=== PATIENT | female | born 1945 ===

== ENCOUNTER 2018-07-28 12:39 | Inpatient (IN) | payer MEDICARE, OTHER ==
[~2018-07-28] VITALS: Ht 160 cm; Wt 79.4 kg
--- NOTE | 2018-07-28 19:30 | NUR ---
ADMITTED PATIENT IN ACUTE REHAB UNDER THE CARE OF SYDNEE DANIEL DONE, BODY CHECK WAS DONE, NOTED WITH RIGHT AND LEFT UNDERNEAT BREAST RASHES, WITH RIGHT AND LEFT GROIN RASHES, ALSO MULTIPLE BRUISE ON R UPPER ARM AND LOWER ARM, AND BILATERAL HANDS, MULTIPLE BRUISES ON LEFT UPPER AND LOWER ARMS. WITH LEFT ARMS WEAKSNESS AND NUMBNESS NOTED. CONT TO MONITOR.
[2018-07-28] MEDS ORDERED: LOSA50TA3 PO (20:19)
[2018-07-28] MEDS ORDERED: AMLO5TAB7 PO (20:19)
[2018-07-28] MEDS ORDERED: ROSU20TA PO (20:19)
[2018-07-28] MEDS ORDERED: ASPI81TA31 PO (20:19)
[2018-07-28] MEDS ORDERED: Z GUARD REMEDY PASTE 57 GM TUBE TOP PRN (20:30)
[2018-07-28 20:43] VITALS: BP 160/75
[2018-07-28] MEDS ORDERED: ACETAMINOPHEN/DIPHENHYDRAMINE TABLET PO ONE (21:30)
[2018-07-29] MEDS: ACETAMINOPHEN 325 MG TABLET PO PRN ×2 (00:28→20:46)
--- NOTE | 2018-07-29 06:10 | NUR ---
PATIENT SLEPT MOST OF THE NIGHT, NO COMPLAIN OF PAIN AT THIS TIME. KEPT CLEAN AND DRY, TURN AND REPOSITION, NO S/S OF HYPO HYPERGYLCEMIA NOTED. CONT TO MONITOR.
--- NOTE | 2018-07-29 07:30 | NUR ---
AWAKE , ALERT ORIENTED. DENIES DISCOMFORT. MADE COMFORTABLE. DIAPER CHANGED REQUESTED. KEPT CLEAN AND DRY.
[2018-07-29] MEDS: LIDOCAINE 5% PATCH TD SCH (08:27)
[2018-07-29 08:35] VITALS: BP 158/71
--- NOTE | 2018-07-29 09:14 | NUR ---
DONE WITH PT, TOLERATED FAIR. BACK TO ROOM
--- NOTE | 2018-07-29 09:45 | NUR ---
Paged [facility] electrical continuity inspector Dr. Arellano for medication reconciliation. Awaiting for call back
[2018-07-29] MEDS: LOSARTAN POTASSIUM 50 MG TABLET PO SCH ×2 (10:06→20:45)
[2018-07-29] MEDS: ASPIRIN 81 MG TAB.CHEW PO SCH (10:06)
[2018-07-29] MEDS: AMLODIPINE 5 MG TABLET PO SCH (10:09)
--- NOTE | 2018-07-29 11:09 | NUR ---
noted small blood and clot in toilet, no bowel movement noted. patient check. patient assess, just small external hemorrhoids noted. small amount of red blood , x 1 clot , cleaned up, tolerated well. Dr Rod in, aware of rectal blood and no bm for today.
--- NOTE | 2018-07-29 13:38 | NUR ---
family in for lunch with patient. patient glad of visit, family supportive of care.
[2018-07-29 16:03] VITALS: BP 144/67
--- NOTE | 2018-07-29 16:33 | NUR ---
resting well. denies discomfort. feeling better, glad of getting better with strength and mobility with extremities.
[2018-07-29] MEDS ORDERED: MELATONIN 3 MG TABLET PO PRN (18:00)
--- NOTE | 2018-07-29 18:11 | NUR ---
no bowel movement today, will request for mom tonight. no more rectal bleed noted.
[2018-07-29 19:30] VITALS: BP 164/78
[2018-07-29] MEDS: ATORVASTATIN 40 MG TABLET PO SCH (20:45)
[2018-07-29] MEDS ORDERED: Medication Not On Formulary EA (Rosuvastatin Calcium (Crestor) 20 MG) PO SCH (21:00)
[2018-07-30 04:00] VITALS: BP 161/66
--- NOTE | 2018-07-30 04:39 | NUR ---
alert and oriented x4 ambulates to the BR with assist. wears diapers at night. gets incontinent @ times. kept clean and dry. BM noted this shift. VSS. ket comfortable. medicated with Tylenol for neck and back pain. admitted for hemorrhagic stroke, DM, hyperlipidemia.will monitor patient. fall precautions maintained. siderails up for safety.
[2018-07-30 06:40] LABS: BASOPHILS # (AUTO) 0.1 K/uL (0.0-8.0); EOSINOPHILS # (AUTO) 0.2 K/uL (0.0-0.7); EOSINOPHILS % (AUTO) 3.2 % (0.0-7.0); HEMATOCRIT 40.3 % (31.2-41.9); HEMOGLOBIN 13.4 g/dL (10.9-14.3); LYMPHOCYTES # (AUTO) 2.5 K/uL (20.0-40.0); LYMPHOCYTES % (AUTO) 38.5 % (20.5-51.5); MEAN CORPUSCULAR HEMOGLOBIN 28.4 uug (24.7-32.8); MEAN CORPUSCULAR HGB CONC 33 g/dL (32.3-35.6); MEAN CORPUSCULAR VOLUME 85.4 fL (75.5-95.3); MONOCYTES # (AUTO) 0.7 K/uL (2.0-10.0); MONOCYTES % (AUTO) 11.5 % (0.0-11.0); NEUTROPHILS % (AUTO) 45.8 % (38.5-71.5); PLATELET COUNT (AUTO) 269 K/uL (179-408); RED BLOOD CELL COUNT(AUTO) 4.72 MIL/uL (3.63-4.92); WHITE BLOOD COUNT (AUTO) 6.5 K/uL (3.8-11.8)
[2018-07-30 07:11] LABS: ALANINE AMINOTRANSFERASE 45 U/L (14-59); ALKALINE PHOSPHATASE 72 U/L (50-136); ASPARTATE AMINOTRANSFERASE 38 U/L (15-37); BILIRUBIN,TOTAL 0.5 mg/dL (0.2-1.0); CARBON DIOXIDE 28 mmol/L (21-32); CHLORIDE 107 mmol/L (98-107); CREATININE 0.7 mg/dL (0.6-1.3); GLUCOSE 123 mg/dL (74-106); PHOSPHOROUS 3.5 mg/dL (2.5-4.9); POTASSIUM 3.6 mmol/L (3.5-5.1); TOTAL PROTEIN, SERUM 7.5 g/dL (6.4-8.2); UREA NITROGEN, BLOOD 21 mg/dL (7-18)
[2018-07-30] MEDS: AMLODIPINE 5 MG TABLET PO SCH (08:27)
[2018-07-30] MEDS: LOSARTAN POTASSIUM 50 MG TABLET PO SCH ×2 (08:27→20:28)
[2018-07-30] MEDS: ASPIRIN 81 MG TAB.CHEW PO SCH (08:27)
[2018-07-30] MEDS: LIDOCAINE 5% PATCH TD SCH (08:28)
[2018-07-30 08:38] VITALS: BP 155/81
--- NOTE | 2018-07-30 09:58 | NUR ---
Patient is alert and orientedx4. lat MB 07/28, request for bowel regimen for regular BM. MD Tamayo aware. ordered colace and MOM. no complaint of pain/discomfort noted. not in distress. will continue monitor
[2018-07-30] MEDS: MAGNESIUM HYDROXIDE 30 ML LIQUID UDC PO PRN (12:11)
--- NOTE | 2018-07-30 13:08 | NUR ---
INTERDISCIPLINARY TEAM CONFERENCE
[2018-07-30 16:15] VITALS: BP 150/80
[2018-07-30 19:30] VITALS: BP 165/76
--- NOTE | 2018-07-30 19:54 | NUR ---
SBAR report received. Needs attended. aaox4 admitted for hemorrhagic stroke with left sided weakness. VSS fall precautions maintained. incontinent of bowel and bladder. no acute distress noted. siderails up for safety. due meds given as scheduled. tolerated po meds well.
[2018-07-30] MEDS: ATORVASTATIN 40 MG TABLET PO SCH (20:28)
[2018-07-30] MEDS: DOCUSATE SODIUM 100 MG CAPSULE PO SCH (20:28)
[2018-07-30] MEDS: ACETAMINOPHEN 325 MG TABLET PO PRN (20:29)
[2018-07-31 04:00] VITALS: BP 173/74
[2018-07-31 08:00] VITALS: BP 162/73
--- NOTE | 2018-07-31 08:55 | NUR ---
Received patient awake in bed. Alert and orientedx4. Continue therapy for ambulation and ADL activity. no complaint of pain/discomfort noted. not in distress. will continue monitor
[2018-07-31] MEDS: ASPIRIN 81 MG TAB.CHEW PO SCH (09:07)
[2018-07-31] MEDS: AMLODIPINE 5 MG TABLET PO SCH (09:07)
[2018-07-31] MEDS: DOCUSATE SODIUM 100 MG CAPSULE PO SCH ×2 (09:07→20:35)
[2018-07-31] MEDS: LOSARTAN POTASSIUM 50 MG TABLET PO SCH ×2 (09:07→20:35)
[2018-07-31] MEDS: LIDOCAINE 5% PATCH TD SCH (09:08)
[2018-07-31 16:22] VITALS: BP 157/60
[2018-07-31 20:10] VITALS: BP 138/65
[2018-07-31] MEDS: ACETAMINOPHEN 325 MG TABLET PO PRN (20:35)
[2018-07-31] MEDS: ATORVASTATIN 40 MG TABLET PO SCH (20:35)
[2018-08-01 04:00] VITALS: BP 174/84
--- NOTE | 2018-08-01 05:02 | NUR ---
aao x4. awake upon rounds. VSS no acute distress noted. needs attended. slept well throughout the night. denies any pain nor any discomfort. Kept comfortable. incontinent of bowel and bladder. Kept clean and dry. No BM noted this shift. VSS.
[2018-08-01 08:00] VITALS: BP 176/75
[2018-08-01] MEDS: LIDOCAINE 5% PATCH TD SCH (08:50)
[2018-08-01] MEDS: DOCUSATE SODIUM 100 MG CAPSULE PO SCH ×2 (08:50→20:14)
[2018-08-01] MEDS: AMLODIPINE 5 MG TABLET PO SCH (08:50)
[2018-08-01] MEDS: LOSARTAN POTASSIUM 50 MG TABLET PO SCH ×2 (08:51→20:14)
[2018-08-01] MEDS: ASPIRIN 81 MG TAB.CHEW PO SCH (08:51)
[2018-08-01 16:06] VITALS: BP 160/73
--- NOTE | 2018-08-01 16:58 | NUR ---
Daily Nursing Note: Patient seen upon rounds, alert and oriented x4, denies pain and not in distress, Patient was able to participate with her skilled PT/OT, all needs attended and met, safety checks done, continent with bowel and bladder. Seen by MD, no new orders at this time. Endorsed to night nurse.
--- NOTE | 2018-08-01 19:00 | NUR ---
Received patient awake, alert and able to verbalized needs. Denies any s/s of hypertension. Complaint of left arm tolerable pain. Safety measure and fall precaution maintained. Continue care as planned.
[2018-08-01] MEDS: ATORVASTATIN 40 MG TABLET PO SCH (20:14)
[2018-08-01] MEDS: ACETAMINOPHEN 325 MG TABLET PO PRN (20:15)
--- NOTE | 2018-08-01 20:21 | NUR ---
Tylenol gr 10 given as ordered and needed for complaint of left arm pain. Turned and repositioned for comfort. LA elevated with pillow. Will monitor.
[2018-08-01 20:27] VITALS: BP 165/85
[2018-08-02 05:00] VITALS: BP 167/84
--- NOTE | 2018-08-02 06:08 | NUR ---
Shift End Report: Tylenol effective. No further complaint presented. Slept well. No fall/injury. All needs attended and met. No significant event reported all night. Continue current rehab plan of care.
--- NOTE | 2018-08-02 07:42 | NUR ---
Received pt. in bed, A/OX4 and verbally responsive, able to make her needs known. Amparo CP or SOB. No c/o pain at this time. All pt. needs attended promptly and met. Safety measure in place. Call light and all frequently used items within pt. reach.
[2018-08-02 07:43] VITALS: BP 158/65
[2018-08-02] MEDS: AMLODIPINE 5 MG TABLET PO SCH (08:45)
[2018-08-02] MEDS: ASPIRIN 81 MG TAB.CHEW PO SCH (08:45)
[2018-08-02] MEDS: DOCUSATE SODIUM 100 MG CAPSULE PO SCH ×2 (08:45→20:29)
[2018-08-02] MEDS: LIDOCAINE 5% PATCH TD SCH (08:46)
[2018-08-02] MEDS: LOSARTAN POTASSIUM 50 MG TABLET PO SCH ×2 (08:46→20:30)
[2018-08-02 15:53] VITALS: BP 161/73
--- NOTE | 2018-08-02 18:12 | NUR ---
EOS NOTE: No significant change during this shift. All pt. need attended and met. All due medications given as ordered. No c/o SOB or CP. Kept pt. clean and dry throughout this shift. Skin care rendered. Dr. Tamayo came and seen pt. with new order for Preparation H, order noted and carried out. Safety measures in place. Call light and all frequently used items in reach. Will endorse to oncoming shift.
[2018-08-02] MEDS ORDERED: SHARK LIVER OIL/PETROLAT OINT 60 GM TUBE RC PRN (18:15)
[2018-08-02 20:00] VITALS: BP 144/79
[2018-08-02] MEDS: ACETAMINOPHEN 325 MG TABLET PO PRN (20:30)
[2018-08-02] MEDS: ATORVASTATIN 40 MG TABLET PO SCH (20:30)
--- NOTE | 2018-08-03 04:35 | NUR ---
slept most of the shift. aaox4 needs attended, VSS Incontinent of bowel and bladder. No BM noted this shift. Kept comfortable. Denies any pain nor any discomfort. Condition unchanged.
[2018-08-03 06:53] VITALS: BP 160/79
[2018-08-03 07:43] VITALS: BP_SYST 124; BP_SYST 153; BP_DIAS 60; BP_DIAS 80
--- NOTE | 2018-08-03 07:58 | NUR ---
SBAR received from previous shift, uneventful night. Received pt. in bed, A/OX4 and verbally responsive, able to make her needs known. Amparo CP or SOB. No c/o pain at this time. All pt. needs attended promptly and met. Safety measure in place. Call light and all frequently used items within pt. reach.
[2018-08-03] MEDS: DOCUSATE SODIUM 100 MG CAPSULE PO SCH ×2 (08:37→20:28)
[2018-08-03] MEDS: LIDOCAINE 5% PATCH TD SCH (08:37)
[2018-08-03] MEDS: ASPIRIN 81 MG TAB.CHEW PO SCH (08:37)
[2018-08-03] MEDS: AMLODIPINE 10 MG TABLET PO SCH (08:38)
[2018-08-03] MEDS: LOSARTAN POTASSIUM 50 MG TABLET PO SCH ×2 (08:38→20:28)
[2018-08-03] MEDS ORDERED: AMLODIPINE 5 MG TABLET PO SCH (09:00)
[2018-08-03 16:20] VITALS: BP 162/78
--- NOTE | 2018-08-03 18:28 | NUR ---
EOS NOTE: No significant change during this shift. All pt. need attended and met. All due medications given as ordered. No c/o SOB or CP. Kept pt. clean and dry throughout this shift. Skin care rendered. PRN preparation H applied to rectal area as ordered. Continent of B&B during this shift. Dr. Tamayo came and seen the pt. with order for podiatry consult. Safety measures in place. Call light and all frequently used items in reach. Will endorse to oncoming shift.
--- NOTE | 2018-08-03 18:45 | NUR ---
Podiatry consult requested by Dr Tamayo. Dr. Briceno informed of consult for right big toe nail. confirmed consult.
[2018-08-03] MEDS: ACETAMINOPHEN 325 MG TABLET PO PRN (20:28)
[2018-08-03] MEDS: ATORVASTATIN 40 MG TABLET PO SCH (20:28)
[2018-08-03 21:07] VITALS: BP 143/73
--- NOTE | 2018-08-04 04:29 | NUR ---
slept most of the shift no acute distress noted. VSS needs attended. kept comfortable. will monitor patient, fall precautions maintained. incontinent of bowel and bladder. kept clean and dry. no BM noted this shift. denies any pain nor any discomfort. siderails up for safety.
[2018-08-04 05:23] VITALS: BP 139/63
[2018-08-04 08:00] VITALS: BP 123/65
[2018-08-04] MEDS: ASPIRIN 81 MG TAB.CHEW PO SCH (08:40)
[2018-08-04] MEDS: DOCUSATE SODIUM 100 MG CAPSULE PO SCH ×2 (08:40→20:18)
[2018-08-04] MEDS: LIDOCAINE 5% PATCH TD SCH (08:41)
[2018-08-04] MEDS: LOSARTAN POTASSIUM 50 MG TABLET PO SCH ×2 (09:00→20:19)
[2018-08-04] MEDS: AMLODIPINE 10 MG TABLET PO SCH (09:00)
[2018-08-04 16:00] VITALS: BP 147/64
--- NOTE | 2018-08-04 19:00 | NUR ---
AWAKE, ALERT AND RESPONSIVE TO BOTH VERBAL AND TACTILE STIMULI, NO C/O THROUGHOUT THE SHIFT . AMBULATED WITH PHYSICAL THERAPIST .IN STABLE CONDITION THROUGHOUT THE SHIFT.
--- NOTE | 2018-08-04 19:30 | NUR ---
Received patient in bed. Alert and verbally responsive. Able to make needs known. Denies any pain and discomfort. No acute distress. No SOB. Kept clean and dry. All needs attended to promptly. Call light within reach. Will continue to monitor.
[2018-08-04] MEDS: ATORVASTATIN 40 MG TABLET PO SCH (20:18)
[2018-08-04] MEDS: ACETAMINOPHEN 325 MG TABLET PO PRN (20:19)
[2018-08-04 21:41] VITALS: BP 133/63
[2018-08-05 05:56] VITALS: BP 144/72
[2018-08-05 07:50] VITALS: BP 165/77
[2018-08-05] MEDS: ASPIRIN 81 MG TAB.CHEW PO SCH (08:45)
[2018-08-05] MEDS: LIDOCAINE 5% PATCH TD SCH (08:46)
[2018-08-05] MEDS: DOCUSATE SODIUM 100 MG CAPSULE PO SCH ×2 (08:46→20:22)
[2018-08-05] MEDS: LOSARTAN POTASSIUM 50 MG TABLET PO SCH ×2 (08:46→20:23)
[2018-08-05] MEDS: AMLODIPINE 10 MG TABLET PO SCH (08:46)
[2018-08-05] MEDS: CLOTRIMAZOLE 1% CREAM 30 GM TUBE TOP SCH (08:47)
--- NOTE | 2018-08-05 09:00 | NUR ---
SBAR received from previous shift, uneventful night. Received pt. in bed, A/OX4 and verbally responsive, able to make her needs known. Amparo CP or SOB. No c/o pain at this time. All due AM medications administered as ordered. No new skin condition identified. All pt. needs attended promptly and met. Safety measure in place. Call light and all frequently used items within pt. reach.
[2018-08-05 15:45] VITALS: BP 148/71
--- NOTE | 2018-08-05 18:54 | NUR ---
EOS NOTE: Uneventful shift. All pt. need attended and met. All due medications given as ordered. No c/o SOB or CP. Kept pt. clean and dry throughout this shift. Pt. with X1 bm today. Safety measures in place. Call light and all frequently used items in reach. Will endorse to oncoming shift.
--- NOTE | 2018-08-05 19:05 | NUR ---
Appears asleep during initial rounds. No s/s of respiratory distress. No s/s of pain/discomforts. Safety measure and fall precaution maintained. Continue care as planned.
[2018-08-05 19:46] VITALS: BP 140/60
[2018-08-05] MEDS: ATORVASTATIN 40 MG TABLET PO SCH (20:22)
[2018-08-05] MEDS: ACETAMINOPHEN 325 MG TABLET PO PRN (20:23)
[2018-08-06 05:41] VITALS: BP 150/70
--- NOTE | 2018-08-06 06:32 | NUR ---
Shift End Report: Slept well. No complaint presented. No fall/injury. No significant event reported all night. VS stable. Continue current rehab plan of care.
[2018-08-06 08:36] VITALS: BP 143/67
[2018-08-06] MEDS: AMLODIPINE 10 MG TABLET PO SCH (08:46)
[2018-08-06] MEDS: DOCUSATE SODIUM 100 MG CAPSULE PO SCH ×2 (08:46→20:51)
[2018-08-06] MEDS: ASPIRIN 81 MG TAB.CHEW PO SCH (08:46)
[2018-08-06] MEDS: LOSARTAN POTASSIUM 50 MG TABLET PO SCH ×2 (08:46→20:52)
[2018-08-06] MEDS: CLOTRIMAZOLE 1% CREAM 30 GM TUBE TOP SCH (08:47)
[2018-08-06] MEDS: LIDOCAINE 5% PATCH TD SCH (08:50)
--- NOTE | 2018-08-06 10:23 | NUR ---
SBAR report received, Pt resting in bed. VSS. Pt assessed, no acute distress pain, or SOB noted. Pt compliant with routine morning medications. Plan of care discussed. All safety and comfort measures implemented. Bed in locked and lowest position with side rails upx2. Call light placed within reach. Will continue to monitor.
--- NOTE | 2018-08-06 13:27 | NUR ---
INTERDISCIPLINARY TEAM CONFERENCE
[2018-08-06 16:06] VITALS: BP 140/70
[2018-08-06 19:30] VITALS: BP 143/70
--- NOTE | 2018-08-06 19:55 | NUR ---
Patient received in bed. AAO x 4. No sign of acute distress or SOB was noted. On room air, with O2 sat 96%. Complains of pain on her left shoulder. Patient assessed. Safety measures maintained. Bed in low position, brake and alarm on, side rails up x2. Call light and personal belongings within reach. Will continue to monitor.
[2018-08-06] MEDS: ACETAMINOPHEN 325 MG TABLET PO PRN (20:51)
[2018-08-06] MEDS: ATORVASTATIN 40 MG TABLET PO SCH (20:51)
[2018-08-07 04:00] VITALS: BP 163/71
--- NOTE | 2018-08-07 06:45 | NUR ---
End of the shift note Patient was stable throughout the shift and had a good sleep last night. No sign of acute distress or SOB noted. Pain assessed and reassessed after pain medication. Medications given as ordered. Safety measures maintained. All needs anticipated promptly. Fall precaution maintained. Bed in low position, brake and alarm on, side rails up x2. Call light and personal belongings within reach. Continue to monitor and will endorse to the day shift nurse.
[2018-08-07 08:20] VITALS: BP 143/62
[2018-08-07] MEDS: LOSARTAN POTASSIUM 50 MG TABLET PO SCH ×2 (08:33→20:20)
[2018-08-07] MEDS: ASPIRIN 81 MG TAB.CHEW PO SCH (08:33)
[2018-08-07] MEDS: LIDOCAINE 5% PATCH TD SCH (08:33)
[2018-08-07] MEDS: AMLODIPINE 10 MG TABLET PO SCH (08:34)
[2018-08-07] MEDS: CLOTRIMAZOLE 1% CREAM 30 GM TUBE TOP SCH (08:34)
[2018-08-07] MEDS: DOCUSATE SODIUM 100 MG CAPSULE PO SCH ×2 (08:34→20:20)
[2018-08-07 15:47] VITALS: BP 150/69
--- NOTE | 2018-08-07 17:40 | NUR ---
Nurse Notes: Patient alert and oriented x 4, no SOB or distress noted. assessed for pain, denies any pain or discomforts. Refused Lidocaine patch today. All due medications were given tolerated well. Safety precautions observed, hourly rounding done. Frequent visual checks done. Encouraged to use call light whenever assistance is needed. Will continue to monitor. Will endorse accordingly to next shift for continuity of care.
--- NOTE | 2018-08-07 19:40 | NUR ---
Patient received in bed. AAO x 4. No sign of acute distress or SOB was noted. On room air, with O2 sat 97%. Complains of pain on her left shoulder. Patient assessed. Safety measures maintained. Bed in low position, brake and alarm on, side rails up x2. Call light and personal belongings within reach. Will continue to monitor.
[2018-08-07] MEDS: ACETAMINOPHEN 325 MG TABLET PO PRN (20:21)
[2018-08-07] MEDS: ATORVASTATIN 40 MG TABLET PO SCH (20:21)
[2018-08-07 20:41] VITALS: BP 140/60
--- NOTE | 2018-08-08 06:19 | NUR ---
End of the shift note Patient was stable throughout the shift and had a good sleep last night. No sign of acute distress or SOB noted. Pain assessed and reassessed after pain medication. Medications given as ordered. Hourly round done. Safety measures maintained. All needs anticipated promptly. Fall precaution maintained. Bed in low position, brake and alarm on, side rails up x2. Call light and personal belongings within reach. Continue to monitor and will endorse to the day shift nurse.
[2018-08-08 06:36] VITALS: BP 146/73
[2018-08-08 08:00] VITALS: BP 156/69
--- NOTE | 2018-08-08 08:00 | NUR ---
Received patient, awake, alert x4. With discomfort over right shoulder. On room air sating well. No SOB or chest pains noted. Encouraged to call for needs. Will continue to monitor.
[2018-08-08] MEDS: LIDOCAINE 5% PATCH TD SCH (09:00)
[2018-08-08] MEDS: ACETAMINOPHEN 325 MG TABLET PO PRN ×2 (10:00→20:15)
[2018-08-08] MEDS: AMLODIPINE 10 MG TABLET PO SCH (10:02)
[2018-08-08] MEDS: DOCUSATE SODIUM 100 MG CAPSULE PO SCH ×2 (10:02→20:15)
[2018-08-08] MEDS: ASPIRIN 81 MG TAB.CHEW PO SCH (10:02)
[2018-08-08] MEDS: LOSARTAN POTASSIUM 50 MG TABLET PO SCH ×2 (10:03→20:15)
[2018-08-08] MEDS: CLOTRIMAZOLE 1% CREAM 30 GM TUBE TOP SCH (10:03)
--- NOTE | 2018-08-08 10:24 | NUR ---
Patient refused Lidocaine Patch, claims it does not work for. Discussed risks and benefits but patent still refused. Tylenol 650 mg given for right shoulder pain rated as 4/10.
[2018-08-08 16:32] VITALS: BP 150/70
[2018-08-08 19:54] VITALS: BP 150/73
[2018-08-08] MEDS: ATORVASTATIN 40 MG TABLET PO SCH (20:14)
--- NOTE | 2018-08-08 21:23 | NUR ---
Received pt sitting at bedside. AAO x4. Family at bedside. No acute distress noted. C/o pain on the shoulder 11/14, pt requested for Tylenol and was given. Meds given as ordered. Safety measures maintained. Call light and personal belongings within reach. Will continue to monitor.
[2018-08-09 05:05] VITALS: BP 151/75
[2018-08-09 07:30] VITALS: BP 145/75
--- NOTE | 2018-08-09 08:10 | NUR ---
Received patient awake, alert x4. On room air. Not in any form of distress. Denies any pain at the moment. Will continue to monitor, call light within reach.
[2018-08-09] MEDS: ACETAMINOPHEN 325 MG TABLET PO PRN ×2 (08:30→20:11)
[2018-08-09] MEDS: DOCUSATE SODIUM 100 MG CAPSULE PO SCH ×2 (08:30→20:11)
[2018-08-09] MEDS: LOSARTAN POTASSIUM 50 MG TABLET PO SCH ×2 (08:31→20:12)
[2018-08-09] MEDS: AMLODIPINE 10 MG TABLET PO SCH (08:31)
[2018-08-09] MEDS: LIDOCAINE 5% PATCH TD SCH (08:31)
[2018-08-09] MEDS: CLOTRIMAZOLE 1% CREAM 30 GM TUBE TOP SCH (08:31)
[2018-08-09] MEDS: ASPIRIN 81 MG TAB.CHEW PO SCH (08:35)
--- NOTE | 2018-08-09 09:00 | NUR ---
Up with physical therapy, tolerating well. Tylenol PRN given for left shoulder pain rated as 4/10. Non radiating.
[2018-08-09 16:48] VITALS: BP 144/75
--- NOTE | 2018-08-09 19:45 | NUR ---
Patient received in bed. AAO x 4. No sign of acute distress or SOB was noted. On room air, with O2 sat 9%. Complains of pain on her left shoulder. Patient assessed. Safety measures maintained. Bed in low position, brake and alarm on, side rails up x2. Call light and personal belongings within reach. Will continue to monitor.
[2018-08-09] MEDS: ATORVASTATIN 40 MG TABLET PO SCH (20:11)
[2018-08-09 20:28] VITALS: BP 139/69
[2018-08-10 05:15] VITALS: BP 151/70
--- NOTE | 2018-08-10 05:41 | NUR ---
End of the shift note Patient was stable throughout the shift and had a good sleep last night. No sign of acute distress or SOB noted. Pain assessed and reassessed after pain medication. Medications given as ordered. Diaper changed, kept her clean and dry. Hourly round done. Safety measures maintained. All needs anticipated promptly. Fall precaution maintained. Bed in low position, brake and alarm on, side rails up x2. Call light and personal belongings within reach. Continue to monitor and will endorse to the day shift nurse accordingly.
[2018-08-10 08:00] VITALS: BP 135/75
[2018-08-10] MEDS: ASPIRIN 81 MG TAB.CHEW PO SCH (08:19)
[2018-08-10] MEDS: DOCUSATE SODIUM 100 MG CAPSULE PO SCH ×2 (08:19→20:18)
[2018-08-10] MEDS: AMLODIPINE 10 MG TABLET PO SCH (08:19)
[2018-08-10] MEDS: LOSARTAN POTASSIUM 50 MG TABLET PO SCH ×2 (08:20→20:18)
[2018-08-10] MEDS: LIDOCAINE 5% PATCH TD SCH (08:20)
[2018-08-10] MEDS: CLOTRIMAZOLE 1% CREAM 30 GM TUBE TOP SCH (08:21)
--- NOTE | 2018-08-10 13:59 | NUR ---
SBAR report received. Board updated. Pt assessed, no acute distress, pain, or SOB. Pt able to make needs known, alert and oriented x4. Pt assisted to bathroom, for voiding, no BM. Pt compliant with routinely scheduled medication administration. VSS. Bed in locked and lowest position, with side rails up x2. Fall precautions in place. All comfort and safety needs met at this time. Call light and personal items placed within reach. Will continue to monitor.
[2018-08-10 15:58] VITALS: BP 100/58
--- NOTE | 2018-08-10 18:51 | NUR ---
Pt seen by MD. No new orders received. All comfort and safety needs promptly attended to throughout this shift. Call light within reach. Will continue to monitor and endorse to oncoming night nurse.
[2018-08-10] MEDS: ATORVASTATIN 40 MG TABLET PO SCH (20:17)
[2018-08-10] MEDS: ACETAMINOPHEN 325 MG TABLET PO PRN (20:18)
[2018-08-10 20:38] VITALS: BP 134/68
--- NOTE | 2018-08-11 00:05 | NUR ---
Received pt at the beginning of shift resting in bed. AAO x4. No acute distress noted. C/o pain on the left shoulder, PRN tylenol given. All other meds given as ordered. VSS. Pt verbalized excitement regarding discharge and she can't wait to go home with family. Safety measures maintained. Call light and personal belongings within reach. Will continue to monitor.
[2018-08-11 06:14] VITALS: BP 139/71
[2018-08-11 08:00] VITALS: BP 152/70
[2018-08-11] MEDS: LIDOCAINE 5% PATCH TD SCH (09:00)
[2018-08-11] MEDS: ACETAMINOPHEN 325 MG TABLET PO PRN ×2 (09:59→17:04)
[2018-08-11] MEDS: DOCUSATE SODIUM 100 MG CAPSULE PO SCH ×2 (09:59→20:16)
[2018-08-11] MEDS: AMLODIPINE 10 MG TABLET PO SCH (09:59)
[2018-08-11] MEDS: ASPIRIN 81 MG TAB.CHEW PO SCH (09:59)
[2018-08-11] MEDS: LOSARTAN POTASSIUM 50 MG TABLET PO SCH ×2 (10:00→20:17)
[2018-08-11] MEDS: CLOTRIMAZOLE 1% CREAM 30 GM TUBE TOP SCH (10:01)
--- NOTE | 2018-08-11 14:35 | NUR ---
SBAR report received, board updated. Pt received resting in bed. Pt assessed, no acute distress or SOB, reports slight headache and that Tylenol helps relieve shoulder pain as well. Pt compliant with all routine medication administration, including Tylenol per PRN orders. VSS. Plan of care for today discussed. All comfort and safety measures implemented. Bed in locked and lowest position with side rails up x2 and bed alarm on. Call light within reach, will continue to monitor.
[2018-08-11 16:00] VITALS: BP 135/69
[2018-08-11] MEDS: MAGNESIUM HYDROXIDE 30 ML LIQUID UDC PO PRN (17:04)
--- NOTE | 2018-08-11 19:10 | NUR ---
Pt seen by MD. no new orders. Pt denies pain at this time. All needs promptly attended to. MOM administered per PRN orders for reported constipation. No BM this shift. Call light within reach. Will continue to monitor and endorse to oncoming mini shifter nurse.
[2018-08-11 19:56] VITALS: BP 140/64
[2018-08-11] MEDS: ATORVASTATIN 40 MG TABLET PO SCH (20:16)
--- NOTE | 2018-08-11 21:40 | NUR ---
Received pt resting in bed. AAO x4. No acute distress noted. No c/o pain or discomfort. Assisted to the bathroom using walker, standby assist. Meds given as ordered. Pt to be discharged tomorrow, TMS placed in chart. Safety measures maintained. Call light and personal belongings within reach. Will continue to monitor.
[2018-08-12 06:21] VITALS: BP 144/66
[2018-08-12 08:00] VITALS: BP 156/74
[2018-08-12 09:38] VITALS: BP 156/74
[2018-08-12] MEDS: LOSARTAN POTASSIUM 50 MG TABLET PO SCH (09:38)
[2018-08-12] MEDS: ASPIRIN 81 MG TAB.CHEW PO SCH (09:38)
[2018-08-12] MEDS: AMLODIPINE 10 MG TABLET PO SCH (09:38)
[2018-08-12] MEDS: DOCUSATE SODIUM 100 MG CAPSULE PO SCH (09:38)
[2018-08-12] MEDS: LIDOCAINE 5% PATCH TD SCH (09:38)
[2018-08-12] MEDS: CLOTRIMAZOLE 1% CREAM 30 GM TUBE TOP SCH (09:39)
--- NOTE | 2018-08-12 09:53 | NUR ---
SBAR received from previous shift, uneventful night. Received pt. in bed, A/OX4 and verbally responsive, able to make her needs known. Amparo CP or SOB. No c/o pain at this time. All due AM medications administered as ordered and tolerated well. Pt. on scheduled discharge to home for today. Pt. showered this AM. All pt. needs attended promptly and met. Safety measure in place. Call light and all frequently used items within pt. reach.
--- NOTE | 2018-08-12 16:58 | NUR ---
Discharge Note: No significant change during this shift. All pt. need attended and met. Pt. a/ox4 with capacity to make decision. All due medications given as ordered. Remained stable throughout this shift. Kept pt. clean and dry throughout this shift. Skin care rendered with no new skin condition identified. Paged Dr. Tamayo and obtained discharge order, with order to d/c pt. home on 08/12/18 with outpatient tx. Orders noted and carried out. Safety measures in place. Call light and all frequently used items in reach. 1630 DTR arrived in unit. Discharge instructions discussed and explained to pt and r/p, pt, verbalized understanding with no new concerns. All pt. belongings accountable for and signed by pt. Pt. teaching provided to pt with verbalization of understanding. Prescription faxed to pt. choice of pharm ([facility]) with confirmation and given to pt. All discharge papers signed by pt and witness by DTR. DME ([facility]) provided. Pt. left facility via W/C at 1650 with DTR in stable condition. Dr. Tamayo made aware of pt. discharge.
== END 2018-08-12 17:30 | disposition home health service (06) | DRG 57 ==
PROVIDERS: ADMIT Physical Medicine & Rehabilitation Pain Medicine; ATTEND Physical Medicine & Rehabilitation Pain Medicine
PROC: 0HBRXZZ Excision of Toe Nail, External Approach (ICD-10-PCS; principal; 2018-08-04)
DX: I69.254 Hemiplegia and hemiparesis following other nontraumatic intracranial hemorrhage affecting left non-dominant side (principal); E78.5 Hyperlipidemia, unspecified; I10 Essential (primary) hypertension; Z91.81 History of falling; R73.03 Prediabetes; I65.29 Occlusion and stenosis of unspecified carotid artery; B35.1 Tinea unguium; B35.3 Tinea pedis; L60.0 Ingrowing nail; I69.292 Facial weakness following other nontraumatic intracranial hemorrhage; R27.0 Ataxia, unspecified; R60.9 Edema, unspecified; G47.00 Insomnia, unspecified
CPT/HCPCS: 36415; 83735; 84100; 85025; 92507; 92523; 92526; 92610; 97110; 97112; 97116; 97530; 97535; A9150; J3490

== ENCOUNTER 2018-09-11 12:20 | Inpatient (IN) | payer MEDICARE, OTHER ==
[~2018-09-11] VITALS: Ht 160 cm; Wt 74.8 kg
[~2018-09-11 12:20] MED LIST: AMLO5TAB9 PO; ASPI81TA31 PO; LOSA50TA3 PO; ROSU20TA2 PO
[2018-09-11 13:24] LABS: BASOPHILS % (AUTO) 0.5 % (0.0-2.0); EOSINOPHILS # (AUTO) 0.1 K/uL (0.0-0.7); HEMATOCRIT 42.8 % (31.2-41.9); HEMOGLOBIN 14.3 g/dL (10.9-14.3); LYMPHOCYTES # (AUTO) 2.3 K/uL (20.0-40.0); LYMPHOCYTES % (AUTO) 26.9 % (20.5-51.5); MEAN CORPUSCULAR HEMOGLOBIN 28.6 uug (24.7-32.8); MEAN CORPUSCULAR HGB CONC 34 g/dL (32.3-35.6); MEAN CORPUSCULAR VOLUME 85.3 fL (75.5-95.3); MONOCYTES # (AUTO) 0.6 K/uL (2.0-10.0); MONOCYTES % (AUTO) 7.1 % (0.0-11.0); NEUTROPHILS # (AUTO) 5.4 K/uL (1.8-8.9); NEUTROPHILS % (AUTO) 64.5 % (38.5-71.5); PLATELET COUNT (AUTO) 275 K/uL (179-408); RED BLOOD CELL COUNT(AUTO) 5.01 MIL/uL (3.63-4.92); WHITE BLOOD COUNT (AUTO) 8.4 K/uL (3.8-11.8)
[2018-09-11 13:26] LABS: CARBON DIOXIDE 24 mmol/L (21-32); CHLORIDE 103 mmol/L (98-107); CREATININE 0.8 mg/dL (0.6-1.3); GLUCOSE 112 mg/dL (74-106); POTASSIUM 4.3 mmol/L (3.5-5.1); UREA NITROGEN, BLOOD 22 mg/dL (7-18)
[2018-09-11 13:39] LABS: BILIRUBIN,DIRECT 0.2 mg/dL (0.0-0.2); BILIRUBIN,TOTAL 0.7 mg/dL (0.2-1.0); TOTAL PROTEIN, SERUM 8.6 g/dL (6.4-8.2)
[2018-09-11] MEDS ORDERED: ATOR40TA PO (14:48)
[2018-09-11] MEDS ORDERED: HYDROCORTISONE 2.5 % RECTAL CREAM 28.35 GM TUBE RC SCH (17:00)
[2018-09-11] MEDS ORDERED: HYDROCODONE/APAP 5-325MG TABLET PO PRN (19:15)
[2018-09-11] MEDS ORDERED: ACETAMINOPHEN 325 MG TABLET PO PRN (19:15)
[2018-09-11] MEDS ORDERED: ZOLPIDEM 5 MG TABLET PO PRN (19:15)
[2018-09-11] MEDS ORDERED: MAGNESIUM HYDROXIDE 30 ML LIQUID UDC PO PRN (19:15)
[2018-09-11] MEDS ORDERED: Z GUARD REMEDY PASTE 57 GM TUBE TOP PRN (19:15)
[2018-09-11] MEDS ORDERED: ONDANSETRON 4 MG/2 ML VIAL IV PRN (19:15)
[2018-09-11 19:21] VITALS: BP 124/63
[2018-09-11] MEDS ORDERED: LOSARTAN POTASSIUM 50 MG TABLET PO ONE (20:15)
[2018-09-11] MEDS: PHENYLEPHRINE/SHARK LIVER/CCB 1 EACH SUPP.RECT RC SCH (21:23)
[2018-09-11] MEDS: ATORVASTATIN 40 MG TABLET PO SCH (21:25)
[2018-09-12 03:43] VITALS: BP 140/63
[2018-09-12 07:19] LABS: CARBON DIOXIDE 27 mmol/L (21-32); CHLORIDE 104 mmol/L (98-107); CHOLESTEROL 119 mg/dL (<200); CREATININE 0.7 mg/dL (0.6-1.3); GLUCOSE 105 mg/dL (74-106); HDL CHOLESTEROL 48 mg/dL (40-60); MAGNESIUM 2.1 mg/dL (1.8-2.4); PHOSPHOROUS 4.1 mg/dL (2.5-4.9); POTASSIUM 3.7 mmol/L (3.5-5.1); TRIGLYCERIDES 80 MG/DL (30-150); UREA NITROGEN, BLOOD 17 mg/dL (7-18)
[2018-09-12 07:27] LABS: BASOPHILS % (AUTO) 0.6 % (0.0-2.0); EOSINOPHILS # (AUTO) 0.2 K/uL (0.0-0.7); EOSINOPHILS % (AUTO) 2.1 % (0.0-7.0); LYMPHOCYTES # (AUTO) 2.1 K/uL (20.0-40.0); LYMPHOCYTES % (AUTO) 28.8 % (20.5-51.5); MEAN CORPUSCULAR HEMOGLOBIN 28.6 uug (24.7-32.8); MEAN CORPUSCULAR HGB CONC 34 g/dL (32.3-35.6); MEAN CORPUSCULAR VOLUME 85.2 fL (75.5-95.3); MONOCYTES # (AUTO) 0.7 K/uL (2.0-10.0); MONOCYTES % (AUTO) 9.7 % (0.0-11.0); NEUTROPHILS # (AUTO) 4.3 K/uL (1.8-8.9); NEUTROPHILS % (AUTO) 58.8 % (38.5-71.5); PLATELET COUNT (AUTO) 269 K/uL (179-408); RED BLOOD CELL COUNT(AUTO) 4.43 MIL/uL (3.63-4.92); WHITE BLOOD COUNT (AUTO) 7.3 K/uL (3.8-11.8)
[2018-09-12 07:39] LABS: HEMATOCRIT 37.7 % (31.2-41.9); HEMOGLOBIN 12.7 g/dL (10.9-14.3)
[2018-09-12] MEDS: ASPIRIN 81 MG TAB.CHEW PO SCH (08:33)
[2018-09-12] MEDS: LOSARTAN POTASSIUM 50 MG TABLET PO SCH ×2 (08:33→17:14)
[2018-09-12] MEDS: AMLODIPINE 5 MG TABLET PO SCH (08:34)
[2018-09-12 11:48] VITALS: BP 110/60
[2018-09-12 15:12] VITALS: BP 124/61
[2018-09-12] MEDS ORDERED: GOLYTELY 4000 ML BOTTLE PO ONE (17:45)
[2018-09-12 19:00] VITALS: BP 138/67
[2018-09-12] MEDS: PHENYLEPHRINE/SHARK LIVER/CCB 1 EACH SUPP.RECT RC SCH (21:43)
[2018-09-12] MEDS: ATORVASTATIN 40 MG TABLET PO SCH (21:46)
[2018-09-13 04:00] VITALS: BP 121/52
[2018-09-13] MEDS ORDERED: FENTANYL CITRATE 100 MCG/2 ML AMPUL ONE (07:05)
[2018-09-13] MEDS: ASPIRIN 81 MG TAB.CHEW PO SCH (09:55)
[2018-09-13] MEDS: LOSARTAN POTASSIUM 50 MG TABLET PO SCH ×2 (09:55→17:44)
[2018-09-13] MEDS: AMLODIPINE 5 MG TABLET PO SCH (09:55)
[2018-09-13 11:55] VITALS: BP 137/62
[2018-09-13] MEDS ORDERED: IV LACTATED RINGERS SOLUTION 1,000 ML BAG IV ONE (15:15)
[2018-09-13] MEDS ORDERED: SIMETHICONE 40 MG/0.6 ML, 30ML BOTTLE MC ONE (15:15)
[2018-09-13] MEDS ORDERED: LIDOCAINE HCL 1% 20 ML VIAL MC ONE (15:15)
[2018-09-13] MEDS ORDERED: PROPOFOL 200 MG/20 ML BOTTLE IV ONE (15:15)
[2018-09-13 16:00] VITALS: BP 139/69
[2018-09-13 19:00] VITALS: BP 133/66
[2018-09-13] MEDS: PHENYLEPHRINE/SHARK LIVER/CCB 1 EACH SUPP.RECT RC SCH (20:42)
[2018-09-13] MEDS: ATORVASTATIN 40 MG TABLET PO SCH (20:42)
[2018-09-14 04:00] VITALS: BP 99/57
[2018-09-14] MEDS: LOSARTAN POTASSIUM 50 MG TABLET PO SCH ×2 (08:33→18:12)
[2018-09-14] MEDS: ASPIRIN 81 MG TAB.CHEW PO SCH (08:33)
[2018-09-14] MEDS: BISACODYL 5 MG TABLET.DR PO SCH ×4 (08:33→18:12)
[2018-09-14] MEDS: AMLODIPINE 5 MG TABLET PO SCH (08:33)
[2018-09-14] MEDS: MAGNESIUM CITRATE 296 ML BOTTLE PO SCH ×3 (08:33→20:20)
[2018-09-14 09:07] LABS: HEPATITIS A AB, IgM Negative (Negative); HEPATITIS B SURFACE AB Non Reactive (.); HEPATITIS B SURFACE AG Negative (Negative)
[2018-09-14 11:44] VITALS: BP 114/57
[2018-09-14 15:42] VITALS: BP 122/55
[2018-09-14 19:00] VITALS: BP 121/56
[2018-09-14] MEDS: ATORVASTATIN 40 MG TABLET PO SCH (20:21)
[2018-09-14] MEDS: PHENYLEPHRINE/SHARK LIVER/CCB 1 EACH SUPP.RECT RC SCH (20:21)
[2018-09-14] MEDS ORDERED: FLEET ENEMA 133 ML BOTTLE RC PRN (21:15)
[2018-09-15 04:00] VITALS: BP 107/52
[2018-09-15] MEDS: ASPIRIN 81 MG TAB.CHEW PO SCH (08:01)
[2018-09-15] MEDS: LOSARTAN POTASSIUM 50 MG TABLET PO SCH ×2 (08:01→16:52)
[2018-09-15] MEDS: AMLODIPINE 5 MG TABLET PO SCH (08:01)
[2018-09-15 11:26] VITALS: BP 128/66
[2018-09-15 15:17] VITALS: BP 123/59
[2018-09-15 16:52] VITALS: BP 127/55
[2018-09-15] MEDS ORDERED: LIDOCAINE 1% 30 ML VIAL INJ ONE (18:34)
[2018-09-15] MEDS ORDERED: IRR STERIL WATER FOR IRR 1000 ML BOTTLE IR ONE (18:34)
[2018-09-15] MEDS ORDERED: PROPOFOL 200 MG/20 ML BOTTLE IV ONE (18:34)
== END 2018-09-15 18:35 | disposition home or self-care (01) | DRG 395 ==
LOC: ER 12:23 → MED 14:58
PROVIDERS: ADMIT Internal Medicine; ATTEND Internal Medicine
PROC: 0DB78ZX Excision of Stomach, Pylorus, Via Natural or Artificial Opening Endoscopic, Diagnostic (ICD-10-PCS; principal; 2018-09-13)
PROC: 0DBP8ZX Excision of Rectum, Via Natural or Artificial Opening Endoscopic, Diagnostic (ICD-10-PCS; 2018-09-15)
DX: K64.8 Other hemorrhoids (principal); K29.50 Unspecified chronic gastritis without bleeding; K44.9 Diaphragmatic hernia without obstruction or gangrene; B96.81 Helicobacter pylori [H. pylori] as the cause of diseases classified elsewhere; K57.30 Diverticulosis of large intestine without perforation or abscess without bleeding; Z79.82 Long term (current) use of aspirin; Z79.899 Other long term (current) drug therapy; E78.5 Hyperlipidemia, unspecified; I10 Essential (primary) hypertension; E83.52 Hypercalcemia; Z86.73 Personal history of transient ischemic attack (TIA), and cerebral infarction without residual deficits; K76.0 Fatty (change of) liver, not elsewhere classified; K31.84 Gastroparesis
CPT/HCPCS: 36415; 71045; 76705; 83735; 84100; 85025; 85730; 86705; 86706; 86709; 86803; 86850; 86900; 86901; 87340; 88342; 93005; A4217; A4663; G0378; J2001; J3010; J3490; J7120